=== PATIENT | female | born 1955 | race African-American/Black ===

== ENCOUNTER 2023-03-23 08:26 | Outpatient (CLI) | payer MEDICARE | END 2023-03-23 08:27 | disposition home or self-care (01) | LOC: CT 08:26 | PROVIDERS: ATTEND Internal Medicine Gastroenterology | DX: K25.9 Gastric ulcer, unspecified as acute or chronic, without hemorrhage or perforation (principal); R10.10 Upper abdominal pain, unspecified; I77.1 Stricture of artery; K57.30 Diverticulosis of large intestine without perforation or abscess without bleeding; K82.8 Other specified diseases of gallbladder | CPT/HCPCS: 74174; 82565 ==

== ENCOUNTER 2023-04-18 13:40 | Outpatient (CLI) | payer MEDICARE | END 2023-04-18 13:41 | disposition home or self-care (01) | LOC: ULT 13:40 | PROVIDERS: ATTEND Physician Assistant Medical | DX: K21.9 Gastro-esophageal reflux disease without esophagitis (principal); R10.10 Upper abdominal pain, unspecified; R07.9 Chest pain, unspecified; R93.2 Abnormal findings on diagnostic imaging of liver and biliary tract | CPT/HCPCS: 71046; 76705 ==

== ENCOUNTER 2023-07-02 13:10 | Outpatient (CLI) | payer MEDICARE ==
[2023-07-02] MEDS ORDERED: Bacteriostatic Normal Saline 30 ML VIAL ONE (13:40)
[2023-07-02] MEDS ORDERED: Sincalide 5 MCG VIAL ONE (13:40)
[2023-07-02] MEDS ORDERED: Sterile Water 10 ML ONE (13:40)
== END 2023-07-02 13:11 | disposition home or self-care (01) ==
LOC: NM 13:10
PROVIDERS: ATTEND Internal Medicine Gastroenterology
DX: R10.13 Epigastric pain (principal); R10.11 Right upper quadrant pain; R94.8 Abnormal results of function studies of other organs and systems
CPT/HCPCS: 78227; A9537; J2805